=== PATIENT | female | born 1970 | race Caucasian/White ===

== ENCOUNTER → 2019-06-01 17:58 | Outpatient (CLI) | payer OTHER, MEDICAID, SELFPAY | PROVIDERS: Visit Provider Physician Assistant | DX: R30.0 Dysuria (principal) | CPT/HCPCS: 87077; 87086 ==

== ENCOUNTER → 2019-08-12 16:50 | Outpatient (CLI) | payer OTHER, MEDICAID, SELFPAY | PROVIDERS: Visit Provider Physician Assistant | DX: R30.0 Dysuria (principal) | CPT/HCPCS: 87077; 87086; 87147; 87186 ==

== ENCOUNTER 2021-09-02 16:55 | Emergency (ER) | payer OTHER, MEDICAID, SELFPAY ==
[2021-09-02 17:04] VITALS: BP 140/89; PULSE 85; RESP 14; TEMP 36.4; O2SAT 100; BMI 22.3
--- NOTE | 2021-09-02 18:34 | ED_ITS ---
HPI - Headache <ANDRES Calvillo - Last Filed: 09/03/21 18:27> General Chief Complaint: Headache Stated Complaint: migraine - sent by [facility] Time Seen by Provider: 09/02/21 18:32 Mode of arrival: Ambulatory History of Present Illness HPI Narrative: 51-year-old female presents to the emergency department with for migraine since 08/20/21. Patient states that she has been taking her migraine medications, using ice, tylenol and ibuprofen with some but little relief. This migraine she is dealing with today started 3 days ago and the last time she took 1 of her triptans was 3 days ago. She reports that the migraine has been co nstant with no breakthrough. Patient endorses 6/10 pain currently and she reports 9/10 pain when migraine is at its worst. Reports nausea and photosensitivity with migraine. She denies any respiratory symptoms, denies exposure to covid. Patient is unvaccinated for covid. Patient states she is taken her triptans 9 of 12 days this month, she has been on a triptan vacation for 3 days. Related Data Previous Rx's Medication Instructions Recorded phenazopyridine 100 mg tablet 100 mg PO TID PRN 0 Days #6 tab 08/12/19 (Pyridium) methocarbamol 500 mg tablet 500 mg PO BEDTIME PRN #20 tab 09/02/21 Allergies Allergy/AdvReac Type Severity Reaction Status Date / Time erythromycin base AdvReac vomiting Verified 09/02/21 16:31 Review of Systems <ANDRES Calvillo - Last Filed: 09/03/21 18:27> Review of Systems Narrative: General: denies fever, chills, malaise, sweats, fatigue Head/Neck: Endorses headache, denies neck pain, dizziness Eyes: denies visual changes, eye pain, endorses photosensitivity Cardio: denies chest pain, palpitations, edema Respiratory: denies dyspnea, cough, orthopnea GI: denies abdominal pain, nausea, vomiting, or diarrhea : denies dysuria, hematuria, urinary retention, frequency or incontinence MSK: denies joint pain, muscle weakness Skin: denies rash, itching, skin lesions or other Neuro: denies numbness, tingling, tinnitus Patient History <ANDRES Calvillo - Last Filed: 09/03/21 18:27> Social History Smoking Status: Former smoker Smoking Status: Former smoker alcohol intake frequency: holidays/special occasions only Substance Use Type: does not use Exam <ANDRES Calvillo - Last Filed: 09/03/21 18:27> Narrative Exam Narrative: Independently reviewed vitals signs and nursing notes. General: Awake, alert, well-nourished and developed, nontoxic, no cardiorespiratory distress Head/Neck: Atraumatic, neck full range of motion, trachea midline, no JVD or lymphadenopathy. Supple, nontender, no meningeal signs. No suspicion for temporal arteritis Eyes: Pupils equal round and reactive, EOMI, conjunctiva normal, no scleral icterus or injections Nose: nares patent, no rhinorrhea, without purulent drainage or septal hematoma. Mouth/Throat: uvula midline, moist mucus membranes, no oral lesions, airway patent Cardio: Regular rate and rhythm, no peripheral edema Respiratory: respirations unlabored without wheezing, stridor, or rales. No r etractions. GI: Abdomen soft, nontender, nondistended MSK: Moves all extremities, neurovascularly intact, no flank tenderness Skin: Normal capillary refill, no rash Neuro: Normal speech and cognition, normal gait, A&O x3 Initial Vital Signs Initial Vital Signs: Vital Signs Temperature 97.6 F 09/02/21 17:04 Pulse Rate 85 09/02/21 17:04 Respiratory Rate 14 09/02/21 17:04 Blood Pressure 140/89 09/02/21 17:04 Pulse Oximetry 100 09/02/21 17:04 <Aleshia Landeros DO - Last Filed: 09/05/21 23:59> Initial Vital Signs Initial Vital Signs: Vital Signs Temperature 97.6 F 09/02/21 17:04 Pulse Rate 85 09/02/21 17:04 Respiratory Rate 14 09/02/21 17:04 Blood Pressure 140/89 09/02/21 17:04 Pulse Oximetry 100 09/02/21 17:04 Course <ANDRES Calvillo - Last Filed: 09/03/21 18:27> Orders Ordered: Discontinued Medications Dexamethasone (Dexamethasone 10 Mg/Ml Vial) 10 mg IV NOW ONE Stop: 09/02/21 18:40 Last Admin: 09/02/21 18:54 Dose: 10 mg Documented by: [email or web address] Diphenhydramine HCl (Diphenhydramine 50 Mg/Ml Vial) 25 mg IV NOW ONE Stop: 09/02/21 18:40 Last Admin: 09/02/21 18:54 Dose: 25 mg Documented by: [email or web address] Sodium Chloride (Normal Saline 0.9%) 1,000 mls @ 1,000 mls/hr IV BOLUS ONE Stop: 09/02/21 19:38 Last Infusion: 09/02/21 20:50 Dose: 0 mls/hr Documented by: [email or web address] Admin: 09/02/21 18:53 Dose: 1,000 mls/hr Documented by: [email or web address] Ketorolac Tromethamine (Ketorolac 30 Mg/Ml Vial) 15 mg IV NOW ONE Stop: 09/02/21 18:40 Last Admin: 09/02/21 18:55 Dose: 15 mg Documented by: [email or web address] Lorazepam (Lorazepam 2 Mg/Ml Inj) 1 mg IV NOW ONE Stop: 09/02/21 20:05 Last Admin: 09/02/21 20:20 Dose: 1 mg Documented by: [email or web address] Ondansetron HCl (Ondansetron 4 Mg/2 Ml Inj) 4 mg IV NOW ONE Stop: 09/02/21 18:40 Last Admin: 09/02/21 18:54 Dose: 4 mg Documented by: [email or web address] Prochlorperazine (Prochlorperazine 10 Mg/2 Ml Vial) 10 mg IV NOW ONE Stop: 09/02/21 18:40 Last Admin: 09/02/21 19:37 Dose: Not Given Documented by: [email or web address] Prochlorperazine (Prochlorperazine 10 Mg/2 Ml Vial) 10 mg IV NOW ONE Stop: 09/02/21 20:05 Last Admin: 09/02/21 20:21 Dose: 10 mg Documented by: [email or web address] Sumatriptan Succinate (Sumatriptan 6 Mg/0.5 Ml Vial) 6 mg SUBCUT NOW ONE Stop: 09/02/21 20:50 Last Admin: 09/02/21 21:16 Dose: 6 mg Documented by: [email or web address] Vital Signs Vital signs: Vital Signs - 8 hr 09/02/21 17:04 09/02/21 20:21 Temperature 97.6 F Pulse Rate 85 72 Respiratory Rate 14 Blood Pressure 140/89 120/78 Pulse Oximetry 100 <Aleshia Landeros DO - Last Filed: 09/05/21 23:59> Orders Ordered: Discontinued Medications Dexamethasone (Dexamethasone 10 Mg/Ml Vial) 10 mg IV NOW ONE Stop: 09/02/21 18:40 Last Admin: 09/02/21 18:54 Dose: 10 mg Documented by: [email or web address] Diphenhydramine HCl (Diphenhydramine 50 Mg/Ml Vial) 25 mg IV NOW ONE Stop: 09/02/21 18:40 Last Admin: 09/02/21 18:54 Dose: 25 mg Documented by: [email or web address] Sodium Chloride (Normal Saline 0.9%) 1,000 mls @ 1,000 mls/hr IV BOLUS ONE Stop: 09/02/21 19:38 Last Infusion: 09/02/21 20:50 Dose: 0 mls/hr Documented by: [email or web address] Admin: 09/02/21 18:53 Dose: 1,000 mls/hr Documented by: [email or web address] Ketorolac Tromethamine (Ketorolac 30 Mg/Ml Vial) 15 mg IV NOW ONE Stop: 09/02/21 18:40 Last Admin: 09/02/21 18:55 Dose: 15 mg Documented by: [email or web address] Lorazepam (Lorazepam 2 Mg/Ml Inj) 1 mg IV NOW ONE Stop: 09/02/21 20:05 Last Admin: 09/02/21 20:20 Dose: 1 mg Documented by: [email or web address] Ondansetron HCl (Ondansetron 4 Mg/2 Ml Inj) 4 mg IV NOW ONE Stop: 09/02/21 18:40 Last Admin: 09/02/21 18:54 Dose: 4 mg Documented by: [email or web address] Prochlorperazine (Prochlorperazine 10 Mg/2 Ml Vial) 10 mg IV NOW ONE Stop: 09/02/21 18:40 Last Admin: 09/02/21 19:37 Dose: Not Given Documented by: [email or web address] Prochlorperazine (Prochlorperazine 10 Mg/2 Ml Vial) 10 mg IV NOW ONE Stop: 09/02/21 20:05 Last Admin: 09/02/21 20:21 Dose: 10 mg Documented by: PAOLA Sumatriptan Succinate (Sumatriptan 6 Mg/0.5 Ml Vial) 6 mg SUBCUT NOW ONE Stop: 09/02/21 20:50 Last Admin: 09/02/21 21:16 Dose: 6 mg Documented by: PAOLA Vital Signs Vital signs: Vital Signs - 8 hr 09/02/21 17:04 09/02/21 20:21 Temperature 97.6 F Pulse Rate 85 72 Respiratory Rate 14 Blood Pressure 140/89 120/78 Pulse Oximetry 100 [facility] - Headache <ANDRES Calvillo - Last Filed: 09/03/21 18:27> [facility] Narrative Medical decision making narrative: This is a 51-year-old female with a complicated migraine history who experiences migraines frequently and is a neurology patient of Dr. Juan. She takes sumatriptan and another tripped in and she states that she is taking these 9 of 12 days and she is concerned about rebound migraine but she has been on vacation for the last 3 days from these medications. She has tried Tylenol, ibuprofen, ice without any improvement. Today she has nausea and photosensitivity associated with her migraine is started on August 20. She states this is been progressively getting worse and she has not had any break in her migraine since then. Today she received 1 L of IV normal saline, Toradol, Benadryl, Zofran, dexamethasone, Compazine, lorazepam, and finally sumatriptan succinate. This is what broke her migraine, she was down to a 4/10 before this after the other medications but had enough discomfort she opted to have an injection of sumatriptan. Patient did not have any vomiting, her symptoms finally improved, she understands to follow-up with Dr. Juan her neurologist. Patient was prescribed a course of methocarbamol for muscle spasms, patient endorses having a tight right trapezius and she clenches her jaw at night time. These may be triggers for her migraine and I considered this may help alleviate that trigger. Headache considerations include, but not limited to: Subarachnoid hemorrhage, but unlikely as patient denies sudden onset of pain, not worst of life, or neck pain. Meningitis considered, but thought unlikely given lack of Brudzinski's, Kernig's sign, altered mental status or fever. Giant cell arteritis considered, but thought unlikely given lack of unilateral findings, pain in holiness, vision changes. HTN Emergency considered, but thought unlikely given normal vitals. Other serious diagnoses considered unlikely given lack of red flag findings such as sudden onset, increasing frequency, immunocompromise, systemic signs (fever, chills, stiff neck, or rash), focal neurologic findings, trauma, blood thinners, etc. Patient is appropriate and amenable to discharge home. Vital signs are stable on repeat examination is unremarkable. Patient has been informed of results. Patient has been given strict return to ER precautions for any new or worsening symptoms. Patient understands to follow up closely with outpatient providers as instructed. Patient understands plan and agrees to discharge home. All questions and concerns answered at this time. Discharge Plan Departure Patient Disposition: Home Clinical Impression: Migraine Qualifiers: Migraine type: unspecified Status migrainosus presence: without status migrainosus Intractability: intractable Qualified Code(s): G43.919 - Migraine, unspecified, intractable, without status migrainosus Instructions: DI for Migraine Activity Restrictions/Additional Instructions: *You have been diagnosed an intractable migraine. I am sorry for how bad these are. Please follow-up with Dr. Juan about the options coming out in medicine for you. If you come back to the ER please teach us about it so that we can help other people in your situation too :). Please call him and make an appointment for follow-up or at least talk to him about your migraine symptoms this month. Today you received Benadryl, Toradol, dexamethasone, Zofran, Compazine, lorazepam, IV fluids and finally sumatriptan. I hope that is the one that helps get you over the edge. Thank you for trusting us with your care, I hope that you do not have a migraine this severe again. Please return to the emergency department for any worsening of your symptoms. He can use heat packs for your neck and shoulders which might alleviate some muscle tension which can aggravate a migraine. The only other medication which did not try tonight was a muscle relaxer. These are usually only helpful in tension migraines or headaches with muscle spasms but like you mentioned you grind your teeth at night some maybe it would be helpful to try. I have sent some to the [facility] in [place]. *What to do: *Please continue to take your regular medications as directed. [ x] New medication prescriptions sent to your pharmacy: [ [facility]] [ ] New medication written as a paper prescription [ ] No new medications given *Please follow up with your primary care provider in 2-3 days, call for an appointment. Let them know you were seen in the Emergency Department and that we ask that you be seen in follow up. We will electronically transmit a record of today's note if your PCP is in our system *If you do not have a primary care provider please contact the [facility] Resource line at [phone]. They will ask some questions about your medical history and help get you set up with a doctor in the community. *Return to Emergency Department if you should have any new, worsening or concerning symptoms, such as [fever greater than 101F, chills, worsening pain, persistent vomiting or other bothersome symptoms] Prescriptions: New methocarbamol 500 mg tablet 500 mg PO BEDTIME PRN (Reason: muscle spasm) Qty: 20 0RF No Action phenazopyridine [Pyridium] 100 mg tablet 100 mg PO TID PRN (Reason: pain) 0 Days Qty: 6 0RF Referrals: Fredi Juan MD [Non-Staff] - <Aleshia Landeros DO - Last Filed: 09/05/21 23:59> Cosign ED Attending Marleniature Attestation: I was immediately available in the department for consultation. Documentation has been reviewed. I agree with assessment and plan.
[2021-09-02] MEDS: SODIUM CHLORIDE 0.9% 1,000 ML 1000 ML IV (18:53)
[2021-09-02] MEDS: ONDANSETRON 4 MG/2 ML INJ IV (18:54)
[2021-09-02] MEDS: diphenhydrAMINE 50 MG/ML VIAL 25 MG IV (18:54)
[2021-09-02] MEDS: DEXAMETHASONE 10 MG/ML VIAL IV (18:54)
[2021-09-02] MEDS: KETOROLAC 30 MG/ML VIAL 15 MG IV (18:55)
[2021-09-02] MEDS: LORazepam 2 MG/ML INJ 1 MG IV (20:20)
[2021-09-02 20:21] VITALS: BP 120/78; PULSE 72
[2021-09-02] MEDS: PROCHLORPERAZINE 10 MG/2 ML VIAL IV (20:21)
[2021-09-02 21:05] VITALS: BP 120/78; PULSE 66; O2SAT 97
[2021-09-02] MEDS: SUMAtriptan 6 MG/0.5 ML VIAL SUBCUT (21:16)
[2021-09-02 21:40] VITALS: BP 121/76; PULSE 66; O2SAT 97
== END 2021-09-02 21:30 | disposition home or self-care (01) ==
PROVIDERS: Emergency Provider Nurse Practitioner Critical Care Medicine
DX: G43.919 Migraine, unspecified, intractable, without status migrainosus (principal)
CPT/HCPCS: 96372; 96374; 96375; 99283; 99284; J0780; J1100; J1200; J1885; J2060; J2405; J3030

== ENCOUNTER 2021-12-27 19:31 | Emergency (ER) | payer OTHER, MEDICAID, SELFPAY ==
[2021-12-27 19:45] VITALS: BP 114/72; PULSE 98; RESP 18; TEMP 37.1; O2SAT 98; BMI 22.3
--- NOTE | 2021-12-27 22:13 | ED.HA ---
HPI - Headache General Chief Complaint: Headache Stated Complaint: Severe migraine Time Seen by Provider: 12/27/21 22:13 Mode of arrival: Ambulatory History of Present Illness HPI Narrative: 51F nonsmoker with history of migraines presents with her in the chief complaint of upwards of 7 days of a migraine. She denies any trauma or injury, neck involvement, use of blood thinners or fever. She states that it was rather gradual in its onset and effects the left side of her head which is a normal distribution for her migraines. She states her symptoms are worse with bright lights, loud noise and seemed to improve with rest and a dark room. She denies neurologic symptoms such as blurred or double vision, trouble with speech or extremity numbness, tingling or weakness. She has prescriptions for Imitrex which she has taken with minimal relief. She denies any change in medications or diet. Related Data Previous Rx's Medication Instructions Recorded phenazopyridine 100 mg tablet 100 mg PO TID PRN 0 Days #6 tab 08/12/19 (Pyridium) methocarbamol 500 mg tablet 500 mg PO BEDTIME PRN #20 tab 09/02/21 Allergies Allergy/AdvReac Type Severity Reaction Status Date / Time erythromycin base AdvReac vomiting Verified 12/27/21 19:45 Review of Systems Review of Systems Narrative: GENERAL: See HPI HEENT: Denies sinus pain, ear pain, sore throat, difficulty swallowing, dizziness. RESPIRATORY: Denies dyspnea, cough, wheezing, hemoptysis, sputum. CARDIOVASCULAR: Denies chest pain, palpitations, orthopnea, edema, GASTROINTESTINAL: Denies nausea, vomiting, abdominal pain, diarrhea, constipation, melena. : Denies dysuria, frequency, incontinence, hematuria, urinary retention. MUSCULOSKELETAL: denies weakness, joint pain, or bony pain SKIN: Denies rash, skin lesions, or other NEUROLOGIC: See HPI PSYCHIATRIC: No concerning psychosocial issues. 12 point review of systems is negative except for those stated above Patient History Social History Smoking Status: Former smoker Smoking Status: Former smoker alcohol intake frequency: holidays/special occasions only Substance Use Type: marijuana Exam Narrative Exam Narrative: GENERAL: [51] year old patient appears stated age. Well-developed patient, in mild distress. Covering her eyes, massaging the top of her head HEAD: Atraumatic. Normocephalic. EYES: Pupils equal round and reactive. Extraocular motions intact. No scleral icterus. No injection or drainage. ENT: Nose without bleeding, purulent drainage. Throat without erythema, tonsillar hypertrophy or exudate. Airway patent. NECK: Trachea midline. Non tender, no meningeal signs CARDIOVASCULAR: Regular rate and rhythm without murmurs, gallops, or rubs. RESPIRATORY: Clear to auscultation. Breath sounds equal bilaterally. No wheezes, rales, or rhonchi. GASTROINTESTINAL: Abdomen soft, non-tender, nondistended. EXTREMITIES: No edema or joint tenderness. BACK: Nontender without deformity or crepitance. No flank tenderness. NEURO: AOx3. SKIN: No rash or erythema of visible areas NIH Stroke Scale 1a. LOC: Patient is alert and keenly responsive (0) 1b. LOC Questions: Patient answers both LOC questions accurately (0) 1c. LOC Commands: Patient performs both tasks correctly (0) 2. Best Gaze: Normal (0) 3. Visual: No visual loss (0) 4. Facial palsy: Normal symmetrical movements (0) 5. Motor arm: No drift (0) 6. Motor leg: No drift (0) 7. Limb ataxia: Absent (0) 8. Sensory: Normal (0) 9. Best language: No aphasia; normal (0) 10. Dysarthria: Normal (0) 11. Extinction and inattention: No abnormality (0) NIHSS: 0 Initial Vital Signs Initial Vital Signs: Vital Signs Temperature 98.7 F 12/27/21 19:45 Pulse Rate 98 H 12/27/21 19:45 Respiratory Rate 18 12/27/21 19:45 Blood Pressure 114/72 12/27/21 19:45 Pulse Oximetry 98 12/27/21 19:45 Course Orders Ordered: Discontinued Medications Dexamethasone (Dexamethasone 10 Mg/Ml Vial) 10 mg IV NOW ONE Stop: 12/27/21 22:24 Last Admin: 12/27/21 22:31 Dose: 10 mg Documented by: [email or web address] Diphenhydramine HCl (Diphenhydramine 50 Mg/Ml Vial) 25 mg IV NOW ONE Stop: 12/27/21 22:24 Last Admin: 12/27/21 22:31 Dose: 25 mg Documented by: [email or web address] Sodium Chloride (Normal Saline 0.9%) 1,000 mls @ 1,000 mls/hr IV BOLUS ONE Stop: 12/27/21 23:22 Last Infusion: 12/27/21 23:55 Dose: 0 mls/hr Documented by: [email or web address] Admin: 12/27/21 22:30 Dose: 1,000 mls/hr Documented by: [email or web address] Ketorolac Tromethamine (Ketorolac 30 Mg/Ml Vial) 15 mg IV NOW ONE Stop: 12/27/21 22:24 Last Admin: 12/27/21 22:31 Dose: 15 mg Documented by: [email or web address] Metoclopramide HCl (Metoclopramide 10 Mg/2 Ml Inj) 10 mg IV NOW ONE Stop: 12/27/21 22:24 Last Admin: 12/27/21 22:31 Dose: 10 mg Documented by: [email or web address] Reevaluation(s) Reevaluation #1: Patient has significant improvement in symptoms after above-stated therapies Vital Signs Vital signs: Vital Signs - 8 hr 12/27/21 23:26 12/28/21 00:00 Pulse Rate 71 84 Respiratory Rate 16 16 Blood Pressure 113/71 118/78 Pulse Oximetry 97 97 MDM - Headache MDM Narrative Medical decision making narrative: Headache considerations include, but not limited to: Subarachnoid hemorrhage, but unlikely as patient denies sudden onset of pain, not worst of life, or neck pain Meningitis considered, but thought unlikely given lack of Brudzinski's, Kernig's sign, altered mental status or fever Giant cell arteritis considered, but thought unlikely given lack of unilateral findings, pain in congregational, vision change HTN Emergency considered, but thought unlikely given normal vitals Other serious diagnoses considered unlikely given lack of red flag findings such as sudden onset, increasing frequency, immunocompromise, systemic signs (fever, chills, stiff neck, or rash), focal neurologic findings, trauma, blood thinners, etc. Patient's symptoms improved over duration of stay with above-stated therapies. Findings and discharge diagnosis discussed with patient/family followed by verbalization of understanding Return precautions discussed with patient/family whom verbalize understanding. Discharge Plan Departure Patient Disposition: Home Clinical Impression: Migraine Instructions: DI for Migraine Activity Restrictions/Additional Instructions: *You have been diagnosed with [migraine-type headache ] *What to do: *Take medications as directed *Follow up with your primary care provider in 2-3 days, call for an appointment. Let them know you were seen in the Emergency Department and that we ask that you be seen in follow up *Return to ER if you should have any new, worsening or concerning symptoms, such as [ fever > 101F, neck pain or stiffness, vomiting, confusion, seizure, focal weakness, vision change, speech deficit or other concerning symptoms ] Prescriptions: No Action phenazopyridine [Pyridium] 100 mg tablet 100 mg PO TID PRN (Reason: pain) 0 Days Qty: 6 0RF methocarbamol 500 mg tablet 500 mg PO BEDTIME PRN (Reason: muscle spasm) Qty: 20 0RF Referrals: Fredi Juan MD [Non-Staff] -
[2021-12-27] MEDS: SODIUM CHLORIDE 0.9% 1,000 ML 1000 ML IV (22:30)
[2021-12-27] MEDS: diphenhydrAMINE 50 MG/ML VIAL 25 MG IV (22:31)
[2021-12-27] MEDS: METOCLOPRAMIDE 10 MG/2 ML INJ IV (22:31)
[2021-12-27] MEDS: DEXAMETHASONE 10 MG/ML VIAL IV (22:31)
[2021-12-27] MEDS: KETOROLAC 30 MG/ML VIAL 15 MG IV (22:31)
[2021-12-27 23:26] VITALS: BP 113/71; PULSE 71; RESP 16; O2SAT 97
[2021-12-28] VITALS: BP 118/78; PULSE 84; RESP 16; O2SAT 97
== END 2021-12-28 00:01 | disposition home or self-care (01) ==
PROVIDERS: Emergency Provider Emergency Medicine
DX: G43.909 Migraine, unspecified, not intractable, without status migrainosus (principal)
CPT/HCPCS: 96374; 96375; 99283; 99284; J1100; J1200; J1885; J2765

== ENCOUNTER → 2022-04-27 09:49 | Outpatient (CLI) | payer OTHER, MEDICAID, SELFPAY ==
[2022-04-27 11:29] LABS: COVID19 -Nasal RAPID Negative (Negative)
== END ==
PROVIDERS: PCP Acupuncturist; Visit Provider Surgery
DX: Z20.822 Contact with and (suspected) exposure to COVID-19; Z01.812 Encounter for preprocedural laboratory examination
CPT/HCPCS: 87635; C9803

== ENCOUNTER 2022-04-28 11:08 | Day surgery (SDC) | payer OTHER, MEDICAID, SELFPAY ==
[2022-04-28 11:28] VITALS: BP 109/74; PULSE 84; RESP 18; TEMP 35.6; O2SAT 100; BMI 20.5
[2022-04-28] MEDS: LACTATED RINGERS 1,000 ML 200 ML IV (11:40)
--- NOTE | 2022-04-28 13:26 | PM.HP.1 ---
History of Present Illness History of Present Illness Date Patient Seen: 04/28/22 Time Patient Seen: 13:27 Chief complaint: Colonoscopy Narrative: The patient presents for colorectal screening. She had a previously normal colonoscopy approximately 10 years ago. No personal or family history of colon cancer. On further history denies any recent gastrointestinal symptoms. No nausea, vomiting, abdominal pain, loss of appetite, unexplained weight loss, change in bowel habits, diarrhea, constipation, or melena. Occasional scant bright red blood per rectum which she attributes to hemorrhoid or fissure. Patient History Family & Social History Social History: household members spouse Tobacco & Substance use: Smoking Status Former smoker alcohol intake frequency a few times a week Substance Use Type marijuana Meds Home Medications and Allergies Home Medications Medication Instructions Recorded Confirmed Type rizatriptan 10 mg tablet 10 mg PO PRN PRN Migraine Headache 04/28/22 04/28/22 History sumatriptan succinate 100 mg tablet 100 mg PO PRN PRN Migraine Headache 04/28/22 04/28/22 History Allergies Allergy/AdvReac Type Severity Reaction Status Date / Time erythromycin base AdvReac vomiting Verified 04/28/22 11:22 Exam Vital Signs (past 8 hours): - 04/28/22 11:28 Temperature 96.1 F L Pulse Rate 84 Respiratory Rate 18 Blood Pressure 109/74 Pulse Oximetry 100 Oxygen Delivery Method Room Air Oxygen Flow Rate 0 Oxygen Delivery Method Room Air Oxygen Flow Rate 0 Narrative Exam Narrative: General adult woman alert oriented no acute distress Chest nonlabored respirations Abdomen soft nontender nondistended Assessment & Plan Assessment & Plan narrative: The patient requires colorectal screening and colonoscopy is recommended. Technical details were discussed. Risks, benefits, alternatives explained. Risks including but not limited to myocardial infarction, aspiration, bleeding, pain, missed lesion, incomplete examination, need for further radiographic studies, colonic perforation, and need for major abdominal surgery were discussed. All questions were answered to their satisfaction, and they are in agreement with this plan. Time Spent With Patient Critical Care time: I spent a total of [] minutes of critical care time on this patient's care today; this time is exclusive of procedural time.
[2022-04-28] MEDS: fentaNYL 100 MCG/2 ML INJ 200 MCG IV (13:45)
[2022-04-28] MEDS: MIDAZOLAM 5 MG/5 ML VIAL 8 MG IV (13:45)
--- NOTE | 2022-04-28 14:00 | P.OP.COLON_ITS ---
Operative Date/Time/Diagnoses Date of procedure: 04/28/22 Time of procedure: 14:00 Pre-op diagnosis: Screening Post-op diagnosis: same Procedure & Clinicians Study performed: Colonoscopy Same procedure as scheduled: Yes Indications: Screening Surgeon: Giacomo Diaz Procedure Notes Procedure in detail: Medications: Conscious sedation using 8mg IV midazolam and 200mcg IV of fentanyl The history and physical was performed/updated and the patient is ASA class is 1. The procedure was discussed in detail with the patient. Potential risks complications including infection, bleeding, missed diagnosis, perforation, need for surgery, and were explained. Their questions were answered and informed consent was obtained. Patient was brought to the procedure room and placed standard monitoring equipment. The patient's vital signs were monitored continuously throughout the entire procedure. Prior to starting time-out was performed. The patient was placed in the left lateral recumbent position. Procedural sedation was adminis tered. Examination began with a thorough inspection of the perianal area there was no evidence of fissures, fistulae, external hemorrhoids or cutaneous malignancy. The colonoscopy scope was then placed into the anal canal and was advanced to the cecum, which was identified by the ileocecal valve, the appendiceal orifice and the confluence of the taenia. The scope was then slowly withdrawn examining colon thoroughly in all directions, irrigating it of any residual stool. FINDINGS 1. Normal healthy colon 2. No masses or polyps 3. Internal hemorrhoids grade 1 The patient tolerated the procedure well. They will be discharged once criteria are met. The prep was of good/excellent quality. The withdrawl time was 7 minutes. The sedation time was 23 minutes. Specimen(s): none sent Complications: none Impression: Normal colonoscopy Post-procedure Recommendations: Colonoscopy in 10 years and High fiber diet Disposition: same day surgery
[2022-04-28 14:03] VITALS: BP 110/68; PULSE 100; RESP 20; TEMP 36.7; O2SAT 98
[2022-04-28 14:14] VITALS: BP 110/86; PULSE 98; RESP 26; O2SAT 97
[2022-04-28] MEDS: ONDANSETRON 4 MG/2 ML INJ IV (14:25)
[2022-04-28 14:36] VITALS: BP 98/69; PULSE 78; RESP 16; TEMP 36.6; O2SAT 100
== END 2022-04-28 14:35 | disposition home or self-care (01) ==
PROVIDERS: PCP Acupuncturist; Referring Provider Surgery; Visit Provider Surgery
PROC: 0DJD8ZZ Inspection of Lower Intestinal Tract, Via Natural or Artificial Opening Endoscopic (ICD-10-PCS; CPT 45378; principal; 2022-04-28 12:45)
DX: Z12.11 Encounter for screening for malignant neoplasm of colon (principal); K64.0 First degree hemorrhoids
CPT/HCPCS: 45378; 99152; J2250; J2405; J3010

== ENCOUNTER → 2024-12-01 13:07 | Outpatient (CLI) | payer OTHER, SELFPAY ==
[2024-12-01 14:34] LABS: COVID-19 CEPHEID 4-PLEX PCR Negative (Negative); Influenza A - CEPHEID Flu A NEGATIVE (NEGATIVE); Influenza B - CEPHEID Flu B NEGATIVE (NEGATIVE); Respiratory Syncytial Virus Negative (Negative)
== END ==
PROVIDERS: PCP Acupuncturist; Visit Provider Nurse Practitioner Family
DX: R05.9 Cough, unspecified (principal)
CPT/HCPCS: 87635; 87400; 87420; 0241U

== ENCOUNTER → 2024-12-01 13:10 | Outpatient (CLI) | payer OTHER, SELFPAY ==
--- NOTE | 2024-12-01 13:11 | DI.RAD.S_ITS ---
PROCEDURE: XR CHEST 2V INDICATIONS: cough TECHNIQUE: 2 views of the chest were acquired. COMPARISON: None. FINDINGS: Surgical changes and devices: None. Lungs and pleura: Lungs are clear. No pleural effusions or pneumothorax. Mediastinum: Mediastinal contours are normal. Heart size is normal. Bones and chest wall: No suspicious bony abnormalities. Soft tissues appear unremarkable. IMPRESSION: No acute cardiopulmonary abnormality is seen. Dictated by: Anup Mcbride M.D. on 12/02/2024 at 22:45 Approved by: Anup Mcbride M.D. on 12/02/2024 at 22:45
== END ==
PROVIDERS: Referring Provider Nurse Practitioner Family; Visit Provider Nurse Practitioner Family
DX: R05.9 Cough, unspecified (principal)
CPT/HCPCS: 0241U; 71046